=== PATIENT | male | born 1980 | race Caucasian/White ===

== ENCOUNTER 2021-07-20 17:52 | Emergency (ER) | payer BC ==
[~2021-07-20] VITALS: Ht 177.8 cm; Wt 97.5 kg
[2021-07-20 18:15] VITALS: BP 148/96
[2021-07-20 18:20] VITALS: BP 146/93
--- NOTE | 2021-07-20 19:02 | ER.PDOC ---
General Chief Complaint: Nausea,Vomiting,Diarrhea Stated Complaint: UPSET STOMACH & CHEST PAIN Time seen by MD: 18:20 Source: patient Exam Limitations: no limitations History of Present Illness Initial Comments This 41-year-old white male comes in with a complaint of having an upset stomach that started on Friday night he started with diarrhea. developed some nasal congestion but not actual drainage and had continued diarrhea. He is traveling from [place] back home to [place] and is having difficulty with all the stops for the diarrhea. This evening noted a little bit of red streaks of blood in the diarrhea is his reason for coming in. He does not have fevers chills or any other symptoms with this.Correction he has some crampy abdominal pain with this and some achy low back pain with this but no other symptoms. Severity/Quality: moderate, cramping Abdominal Pain Onset Location: Periumbilical Associated Symptoms (diarrhea): copious, watery (Did have some faint streaks of blood in his diarrhea today) Allergies: Coded Allergies: Penicillins (Verified Allergy, Unknown, Anaphylaxis Shock, 07/20/21) ceftriaxone (Verified Allergy, Unknown, 07/20/21) Vital Signs First Vital Signs Date Time Temp Pulse Resp B/P (MAP) Pulse Ox O2 Delivery O2 Flow Rate FiO2 07/20/21 18:15 98.4 85 20 07/20/21 18:15 99 07/20/21 18:20 146/93 (110) Room Air Last Vital Signs Date Time Temp Pulse Resp B/P (MAP) Pulse Ox O2 Delivery O2 Flow Rate FiO2 07/20/21 18:20 98.4 85 20 146/93 (110) 99 Room Air Past Medical History Medical History: no pertinent history Surgical History: no surgical history Social History Smoking: non-smoker Alcohol Use: occassionally Drug Use: none EENTM: nose congestion Gastrointestinal: see HPI All Other Systems: Reviewed and Negative Physical Exam General Appearance: No Apparent Distress, WD/WN HEENT: PERRL/EOMI, Normal ENT Inspection, TMs Normal, Pharynx Normal Neck: Non-Tender, Full Range of Motion, Supple, Normal Inspection Respiratory: chest non-tender, lungs clear, normal breath sounds, no respiratory distress, no accessory muscle use Cardiovascular: Normal Peripheral Pulses, Regular Rate, Rhythm, No Edema, No Gallop, No JVD, No Murmur Gastrointestinal: Non Tender, Hyperactive bowel sounds, Soft Back: Normal Inspection Extremities: Normal Range of Motion, Non-Tender, Normal Inspection, No Pedal Edema, No Calf Tenderness, Normal Capillary Refill, Pelvis Stable 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, No Motor/Sensory Deficits, Alert, Normal Mood/Affect, Oriented x 3 Skin: Normal Color, Warm/Dry Lymphatic: No Adenopathy Results/Orders Results/Orders Orders - KENYON FALLON MD Covid19 Antigen Melanie Yolanda (07/20/21 18:58) Vital Signs Date Time Temp Pulse Resp B/P (MAP) Pulse Ox O2 Delivery O2 Flow Rate FiO2 07/20/21 18:20 98.4 85 20 146/93 (110) 99 Room Air 07/20/21 18:15 98.4 85 20 99 07/20/21 18:15 98.4 85 20 Progress Progress Covid test negative ER DEPART Departure Time of Disposition: 19:11 Disposition: 01 HOME / SELF CARE / HOMELESS Impression: Primary Impression: Gastroenteritis Condition: Stable Referrals: PCP,UNKNOWN (PCP) PRIMARY CARE PROVIDER Comments Lomotil, 2 tabs with for stool, 1 tablet each stool thereafter to a max of 8 in 24 hours. Dispense 24 Duration or Time Spent with Pa: 12m KENYON FALLON MD Jul 20, 2021 19:02
[2021-07-20 19:21] VITALS: BP 154/77
== END 2021-07-20 19:21 | disposition home or self-care (01) ==
LOC: ER 17:52
DX: K52.9 Noninfective gastroenteritis and colitis, unspecified (principal); Z20.822 Contact with and (suspected) exposure to COVID-19; Z88.0 Allergy status to penicillin; Z88.1 Allergy status to other antibiotic agents
CPT/HCPCS: 87426; 99283